=== PATIENT | female | born 1975 ===

== ENCOUNTER 2017-06-28 17:02 | Emergency (ER) | payer SELFPAY ==
[2017-06-28] MEDS ORDERED: Aspirin Low Dose CHEW TAB* 81 MG PO ONE (17:33)
--- NOTE | 2017-06-28 17:36 | ED ---
HPI Chest Pain - HPI Summary HPI Summary: 41 yr old female with the complaint of chest pain, described as tightness and pressure, non radiating, made worse with exertion, currently 01/25. She has associated SOB, nausea. Onset of symptoms was June 19. Symptoms come and go. She has been to [facility] twice. States first time given and inhaler, second time kept overnight. No stress test. Patient states she has been a smoker and quit three weeks ago. Has family history of father at age 52 from CHF. - History of Current Complaint Chief Complaint: UCChestPain Time Seen by Provider: 06/28/17 17:16 Hx Last Menstrual Period: 06/19/17 - Allergy/Home Medications Allergies/Adverse Reactions: Allergies Allergy/AdvReac Type Severity Reaction Status Date / Time No Known Allergies Allergy Verified 06/28/17 17:20 Home Medications: Home Medications Albuterol HFA INHALER* [Ventolin HFA Inhaler*] 2 puff Q4HR PRN 06/28/17 [ History Confirmed 06/28/17] predniSONE TAB* [Deltasone TAB*] 10 mg DAILY 06/28/17 [History Confirmed ] PMH/Surg Hx/FS Hx/Imm Hx Cardiovascular History: Reports: Other Cardiovascular Problems/Disorders - chest pain with two hospital visits. - Surgical History Surgery Procedure, Year, and Place: gallbladder Infectious Disease History: No Infectious Disease History: Denies: Traveled Outside the in Last 30 Days - Family History Known Family History: Positive: Cardiac Disease Family History: chf father at age 52 - Social History Alcohol Use: None Substance Use Type: Reports: None Smoking Status (MU): Former Smoker Length of Time of Smoking/Using Tobacco: 15 years Have You Smoked in the Last Year: Yes Review of Systems Constitutional: Negative Positive: Chest Pain Positive: Shortness Of Breath Positive: Nausea All Other Systems Reviewed And Are Negative: Yes Physical Exam Triage Information Reviewed: Yes Vital Signs On Initial Exam: Initial Vitals Temp Pulse Resp BP Pulse Ox 98.8 F 60 20 132/64 99 06/28/17 17:22 06/28/17 17:22 06/28/17 17:22 06/28/17 17:22 06/28/17 17:22 Vital Signs Reviewed: Yes Appearance: Positive: Well-Appearing, No Pain Distress, Well-Nourished Head/Face: Positive: Normal Head/Face Inspection Eyes: Positive: EOMI ENT: Positive: Pharynx normal Neck: Positive: Nontender Respiratory/Lung Sounds: Positive: Clear to Auscultation, Breath Sounds Present Cardiovascular: Positive: RRR. Negative: Murmur Abdomen Description: Positive: Nontender Musculoskeletal: Positive: Strength/ROM Intact Neurological: Positive: Alert, Oriented to Person Place, Time, CN Intact II-III Psychiatric: Positive: Normal - [place] Coma Scale Best Eye Response: 4 - Spontaneous Best Motor Response: 6 - Obeys Commands Best Verbal Response: 5 - Oriented Diagnostics - Vital Signs Vital Signs Temp Pulse Resp BP Pulse Ox 06/28/17 17:22 98.8 F 60 20 132/64 99 - Laboratory Lab Statement: Any lab studies that have been ordered have been reviewed, and results considered in the medical decision making process. - EKG EKG Cardiac Rate: NL EKG Rhythm: Sinus Rhythm ST Segment: Normal Chest Pain Course/Dx - Course Course Of Treatment: 41 yr old with chest pain and risk factors. She left AMA refusing ambulance transfer to the ER for chest pain. - Diagnoses Provider Diagnoses: Chest pain Discharge - Discharge Plan Condition: Good Disposition: AGAINST MEDICAL ADVICE
[2017-06-28 17:40] VITALS: BP 132/64
[2017-06-29] MEDS ORDERED: Aspirin Low Dose CHEW TAB* 81 MG PO SCH (09:00)
== END 2017-06-28 17:47 | disposition left against medical advice (07) ==
LOC: UCCORT 17:02
DX: R07.89 Other chest pain (principal); R06.02 Shortness of breath; R11.0 Nausea; Z90.49 Acquired absence of other specified parts of digestive tract; Z87.891 Personal history of nicotine dependence
CPT/HCPCS: 93005; 99202; A9270-GY; G0463

== ENCOUNTER 2017-12-16 13:12 | Emergency (ER) | payer OTHER ==
[2017-12-16 14:08] VITALS: BP 108/60
== END 2017-12-16 14:15 | disposition left against medical advice (07) ==
LOC: UCCORT 13:12
DX: M25.511 Pain in right shoulder (principal); Z53.21 Procedure and treatment not carried out due to patient leaving prior to being seen by health care provider